=== PATIENT | female | born 1935 | race Caucasian/White ===

== ENCOUNTER → 2023-04-17 13:39 | Outpatient (REF) | payer MEDICARE, BC, SELFPAY | LOC: RAD 13:39 | PROVIDERS: ATTENDING PHYSICIAN Nurse Practitioner Adult Health | DX: Z78.0 Asymptomatic menopausal state (principal) | CPT/HCPCS: 77080 ==

== ENCOUNTER → 2023-10-23 11:57 | Outpatient (REF) | payer MEDICARE, BC, SELFPAY ==
[2023-10-23 13:34] LABS: ALT (SGPT) 13 U/L (0-35); AST (SGOT) 21 U/L (14-36); Albumin 3.8 g/dl (3.5-5.0); Alkaline Phosphatase 71 U/L (38-126); Blood Urea Nitrogen 30 mg/dl (7-17); Calcium 10.6 mg/dl (8.4-10.2); Carbon Dioxide 27 mmol/L (22-30); Chloride 106 mmol/L (98-107); Glucose 89 mg/dl (70-99); HDL Cholesterol 54 mg/dl; LDL Cholesterol, Calculated 113 mg/dl; Potassium 4.6 mmol/L (3.5-5.1); Sodium 143 mmol/L (135-145); Total Bilirubin 0.5 mg/dl (0.2-1.3); Total Cholesterol 180 mg/dl (50-199); Total Protein 6.5 g/dl (6.3-8.2); Triglyceride 65 mg/dl (10-149); Very Low Density Lipoprotein 13 mg/dl (0-30); eGFR > 60.00
[2023-10-23 13:50] LABS: Vitamin D, 25-OH*** 71.9 ng/mL (30-80)
== END ==
LOC: OLABPV 11:57
PROVIDERS: ATTENDING PHYSICIAN Nurse Practitioner Adult Health
DX: I10 Essential (primary) hypertension (principal); M81.0 Age-related osteoporosis without current pathological fracture
CPT/HCPCS: 36415; 80053; 80061; 82306

== ENCOUNTER → 2024-01-26 12:28 | Outpatient (REF) | payer MEDICARE, BC, SELFPAY | LOC: WDC 12:28 | PROVIDERS: ATTENDING PHYSICIAN Nurse Practitioner Adult Health | DX: Z12.31 Encounter for screening mammogram for malignant neoplasm of breast (principal) | CPT/HCPCS: 77063; 77067 ==

== ENCOUNTER → 2024-05-06 13:37 | Outpatient (REF) | payer MEDICARE, BC, SELFPAY ==
[2024-05-06 17:27] LABS: Urine Albumin 1+ (Neg - Trace); Urine Bilirubin Negative (Negative); Urine Character Clear (Clear); Urine Color Yellow; Urine Glucose Negative (Negative); Urine Ketone Negative (Negative); Urine Leukocyte 2+ (Negative); Urine Nitrite Negative (Negative); Urine Occult Blood Negative (Negative); Urine Urobilinogen Negative (Neg - 1+)
[2024-05-06 17:42] LABS: Urine Bacteria Few (Negative); Urine Red Blood Cell 0-2 /HPF (0-2); Urine Squamous Cell 26-30 /LPF (Few); Urine White Cell 50-60 /HPF (0-5)
== END ==
LOC: OLABPV 13:37
PROVIDERS: ATTENDING PHYSICIAN Nurse Practitioner Adult Health
DX: R35.0 Frequency of micturition (principal); R30.9 Painful micturition, unspecified
CPT/HCPCS: 81003; 81015; 87077; 87086; 87186

== ENCOUNTER → 2024-05-12 09:16 | Outpatient (REF) | payer MEDICARE, BC, SELFPAY ==
[2024-05-13 12:22] LABS: Urine Albumin 1+ (Neg - Trace); Urine Bilirubin Negative (Negative); Urine Character Slightly Cloudy (Clear); Urine Glucose Negative (Negative); Urine Ketone Negative (Negative); Urine Leukocyte 3+ (Negative); Urine Nitrite Negative (Negative); Urine Occult Blood Negative (Negative); Urine Specific Gravity 1.015 (<1.030); Urine Urobilinogen Negative (Neg - 1+)
[2024-05-13 14:40] LABS: Urine Color Yellow
[2024-05-13 14:44] LABS: Urine White Cell 30-40 /HPF (0-5)
[2024-05-13 14:45] LABS: Urine Amorphous Seen; Urine Red Blood Cell 0-2 /HPF (0-2)
== END ==
LOC: OLABPV 09:16
PROVIDERS: ATTENDING PHYSICIAN Nurse Practitioner Adult Health
DX: N39.0 Urinary tract infection, site not specified (principal)
CPT/HCPCS: 81003; 81015; 87086

== ENCOUNTER → 2024-09-28 10:03 | Outpatient (REF) | payer MEDICARE, BC, SELFPAY ==
[2024-09-28 11:08] LABS: ALT (SGPT) 17 U/L (0-35); AST (SGOT) 19 U/L (14-36); Albumin 4.1 g/dl (3.5-5.0); Alkaline Phosphatase 63 U/L (38-126); Blood Urea Nitrogen 26 mg/dl (7-17); Calcium 10.6 mg/dl (8.4-10.2); Carbon Dioxide 26 mmol/L (22-30); Chloride 106 mmol/L (98-107); Glucose 88 mg/dl (70-99); HDL Cholesterol 57 mg/dl; LDL Cholesterol, Calculated 125 mg/dl; Magnesium 2.1 mg/dl (1.6-2.3); Potassium 4.6 mmol/L (3.5-5.1); Sodium 138 mmol/L (135-145); Total Protein 7.2 g/dl (6.3-8.2); Very Low Density Lipoprotein 17 mg/dl (0-30); eGFR > 60.00
[2024-09-28 11:20] LABS: Vitamin D, 25-OH*** 60.1 ng/mL (30-80)
== END ==
LOC: OLABPV 10:03
PROVIDERS: ATTENDING PHYSICIAN Nurse Practitioner Adult Health
DX: I10 Essential (primary) hypertension (principal); E78.2 Mixed hyperlipidemia; E55.9 Vitamin D deficiency, unspecified
CPT/HCPCS: 36415; 80053; 80061; 82306; 83735

== ENCOUNTER → 2024-10-18 16:23 | Outpatient (REF) | payer MEDICARE, BC, SELFPAY ==
[2024-10-18 18:13] LABS: Urine Character Slightly Cloudy (Clear)
[2024-10-18 18:56] LABS: Urine Red Blood Cell 0-2 /HPF (0-2); Urine Squamous Cell 0-2 /LPF (Few)
== END ==
LOC: OLABPV 16:23
PROVIDERS: ATTENDING PHYSICIAN Nurse Practitioner Adult Health
DX: R30.0 Dysuria (principal)
CPT/HCPCS: 81003; 81015; 87077; 87086; 87186

== ENCOUNTER → 2025-01-02 15:04 | Outpatient (REF) | payer MEDICARE, BC, SELFPAY | LOC: RAD 15:04 | PROVIDERS: ATTENDING PHYSICIAN Nurse Practitioner Family | DX: N39.0 Urinary tract infection, site not specified (principal) | CPT/HCPCS: 76770 ==

== ENCOUNTER → 2025-01-20 12:09 | Outpatient (REF) | payer MEDICARE, BC, SELFPAY | LOC: OLABPV 12:09 | PROVIDERS: ATTENDING PHYSICIAN Nurse Practitioner Adult Health | DX: R53.83 Other fatigue (principal); R68.89 Other general symptoms and signs | CPT/HCPCS: 36415; 84443 ==